=== PATIENT | male | born 1960 | race African-American/Black ===

== ENCOUNTER → 2016-11-18 | Outpatient (CLI) | payer OTHER ==
[~2016-11-18] MED LIST: NO MEDICATIONS
--- NOTE | ~2016-11-18 | US6 ---
[facility] A Service of [facility] RADIOLOGY TEXT RESULTS PATIENT: VIRGINIA URBINA LOCATION: [facility] : 62 UNIT #: [id number] AGE: [address]: Edison Ponce MD SEX: M ORDER DR: [id number] [facility] [address]. [place], [place] [address] [id number] O MR#: [id number] Acc #: [id number] NAME: VIRGINIA URBINA : 1960 SEX: M STUDY DATE/TIME: 11/18/2016 7:57 UNIT: [facility] ROOM: STUDY DESCRIPTION: US Abdominal Limited Attending Physician: Edison Ponce M.D. Referring Physician: Edison Ponce M.D. Ordering Physician: Edison Ponce M.D. Primary Care Physician: Edison Ponce M.D. MEDICAL IMAGING REPORT This report is preliminary unless electronic signature is present EXAM Right upper quadrant abdominal ultrasound INDICATION Elevated liver enzyme levels PROCEDURE Lopez-scale and Doppler imaging right upper quadrant of the abdomen. COMPARISON None FINDINGS Visualized portions of the pancreas are unremarkable. There is a 1.2 cm cyst in the right hepatic lobe. The liver has increased echotexture compared with the right kidney. Liver measures 17.6 cm. The right kidney measures 11.2 cm and is normal. Unremarkable gallbladder. Common duct measures 3.0-4.0 mm. IMPRESSION 1. Slightly increased liver echotexture suggesting mild hepatic steatosis. 2. Small cyst in the right hepatic lobe. Dictated by... Alok Dao M.D. THIS IS AN ELECTRONICALLY VERIFIED REPORT Alok Dao M.D. at 11/19/2016 2:11 PM Magdalene TD: 11/18/2016 13:31 JOB #: [id number] [facility] A Service [facility] RADIOLOGY TEXT RESULTS PATIENT: VIRGINIA URBINA LOCATION: [facility] : 62 UNIT #: [id number] AGE: [address]: Edison Ponce MD SEX: M ORDER DR: MEDICAL IMAGING REPORT COPY
== END | disposition home or self-care (01) ==
LOC: CGUS 07:21
DX: R79.89 Other specified abnormal findings of blood chemistry (principal); K76.89 Other specified diseases of liver
CPT/HCPCS: 76705